=== PATIENT | female | born 1990 | race American Indian/Alaskan Native ===

== ENCOUNTER 2017-07-19 15:44 | Emergency (ER) | payer SELFPAY ==
[2017-07-19 15:58] VITALS: BP 128/74
[2017-07-19] MEDS ORDERED: MOTRIN PO ONE (18:11)
[2017-07-19] MEDS ORDERED: MOTRIN ONE (18:13)
[2017-07-19] MEDS ORDERED: XYLOCAINE 2% INFILTRATI ONE (18:25)
--- NOTE | 2017-07-19 19:24 | Emergency Department Report ---
- General Chief complaint: Skin/Abscess/Foreign Body Stated complaint: CYST LEFT ARMPIT Time Seen by Provider: 07/19/17 17:26 Source: patient Mode of arrival: Ambulatory Limitations: No Limitations - History of Present Illness Initial comments: This is a 27-year-old female nontoxic, well nourished in appearance, no acute signs of distress presents to the ED with c/o of boil to the left abscess to the axilla region x1 week. Patient stated this developed last week smaller has gotten bigger. Patient denies any trauma to the region. Patient denies any pus, drainage, fever, chills, headache, nausea, vomiting, chest pain, shortness of breathe, blurry vision, stiff neck. Patient denies any allergies or significant PMH. MD complaint: abscess/boil -: week(s) (1) Tetanus Up to Date: yes (2014) Location: LUE Severity: mild Severity scale (0 -10): 8 Quality: aching Consistency: constant Improves with: none Worsens with: none Context: none Associated symptoms: denies other symptoms Treatments Prior to Arrival: none - Related Data Home Medications Medication Instructions Recorded Confirmed Last Taken traMADol [Ultram] 50 mg PO BID PRN 06/04/16 06/04/16 Unknown Previous Rx's Medication Instructions Recorded Last Taken Type Sulfamethoxazole/Trimethoprim 1 each PO BID #14 tablet 07/19/17 Unknown Rx [Bactrim DS TAB] traMADol [Ultram] 50 mg PO Q6HR PRN #12 tablet 07/19/17 Unknown Rx Allergies Allergy/AdvReac Type Severity Reaction Status Date / Time No Known Allergies Allergy Unverified 06/04/16 10:11 Abscess Boil HPI - HPI Chief Complaint: Skin/Abscess/Foreign Body Stated Complaint: CYST LEFT ARMPIT Time Seen by Provider: 07/19/17 17:26 Home Medications: Home Medications Medication Instructions Recorded Confirmed Last Taken traMADol [Ultram] 50 mg PO BID PRN 06/04/16 06/04/16 Unknown Previous Rx's Medication Instructions Recorded Last Taken Type Sulfamethoxazole/Trimethoprim 1 each PO BID #14 tablet 07/19/17 Unknown Rx [Bactrim DS TAB] traMADol [Ultram] 50 mg PO Q6HR PRN #12 tablet 07/19/17 Unknown Rx Allergies/Adverse Reactions: Allergies Allergy/AdvReac Type Severity Reaction Status Date / Time No Known Allergies Allergy Unverified 06/04/16 10:11 ED Review of Systems ROS: Stated complaint: CYST LEFT ARMPIT Other details as noted in HPI Constitutional: denies: chills, fever Eyes: denies: eye pain, eye discharge, vision change ENT: denies: ear pain, throat pain Respiratory: denies: cough, shortness of breath, wheezing Cardiovascular: denies: chest pain, palpitations Endocrine: no symptoms reported Gastrointestinal: denies: abdominal pain, nausea, diarrhea Genitourinary: denies: urgency, dysuria, discharge Musculoskeletal: denies: back pain, joint swelling, arthralgia Skin: denies: rash, lesions Neurological: denies: headache, weakness, paresthesias Psychiatric: denies: anxiety, depression Hematological/Lymphatic: denies: easy bleeding, easy bruising ED Past Medical Hx - Past Medical History Previous Medical History?: Yes Additional medical history: OBESITY, heart murmur, muscle spasms in back, sciatic nerve pain - Surgical History Past Surgical History?: Yes Additional Surgical History: - Social History Smoking Status: Current Every Day Smoker Substance Use Type: Alcohol - Medications Home Medications: Home Medications Medication Instructions Recorded Confirmed Last Taken Type traMADol [Ultram] 50 mg PO BID PRN 06/04/16 06/04/16 Unknown History Sulfamethoxazole/Trimethoprim 1 each PO BID #14 tablet 07/19/17 Unknown Rx [Bactrim DS TAB] traMADol [Ultram] 50 mg PO Q6HR PRN #12 tablet 07/19/17 Unknown Rx ED Physical Exam - General Limitations: No Limitations General appearance: alert, in no apparent distress - Head Head exam: Present: atraumatic, normocephalic - Eye Eye exam: Present: normal appearance - ENT ENT exam: Present: mucous membranes moist - Neck Neck exam: Present: normal inspection - Respiratory Respiratory exam: Present: normal lung sounds bilaterally. Absent: respiratory distress, wheezes, rales, rhonchi, stridor, chest wall tenderness, accessory muscle use, decreased breath sounds, prolonged expiratory - Cardiovascular Cardiovascular Exam: Present: regular rate, normal rhythm, normal heart sounds. Absent: irregular rhythm, systolic murmur, diastolic murmur, rubs, gallop - GI/Abdominal GI/Abdominal exam: Present: soft, normal bowel sounds - Extremities Exam Extremities exam: Present: normal inspection, full ROM, normal capillary refill. Absent: tenderness, pedal edema, joint swelling, calf tenderness - Back Exam Back exam: Present: normal inspection - Neurological Exam Neurological exam: Present: alert, oriented X3 - Psychiatric Psychiatric exam: Present: normal affect, normal mood - Skin Skin exam: Present: warm, dry, intact, normal color. Absent: rash - Other Other exam information: 2 cm swelling with fluctuance and induration present to the left axilla region. No pus or drainage noted. Tender to touch. ED Course Vital Signs 07/19/17 07/19/17 15:52 18:13 Temperature 99.9 F H Pulse Rate 124 H Respiratory 16 18 Rate Blood Pressure 128/74 O2 Sat by Pulse 98 Oximetry - Reevaluation(s) Reevaluation #1: 07/19/17 19:28 Patient is speaking in full sentences with no signs of distress noted. - I & D Left Chest Type of Procedure: Complex Site: left axilla region Blade Size: 11 I & D Procedure: betadine prep, sterile drapes applied, sterile dressing applied , gauze wick placed Progress: Under sterile field, I used Betadine to cleanse the area. I then used 2% lidocaine plain with 25-gauge 5/8 needle to inject area for anesthetic purposes. Total volume injected 3 mL. I then used an 11 blade to make a 1 cm incision. About 2 mL's of purulent drainage has been noted. I then used a hemostat to break the abscess formation. I then used sterile 0.9% normal saline flush to flush the wound with total volume of 40 mL used. I then put a 1 /4 iodoform packing to the incision. A sterile 4 x 4 with tape has been applied as dressing. Bleeding is under control. Patient tolerated the procedure well with no signs of distress noted. ED Medical Decision Making - Medical Decision Making This is a 27-year-old female that presents with abscess. Patient is stable and was examined by me. I/D has been performed and patient tolerated well with no signs of distress. Patient was instructed to return in 2 days for incision and drainage. Patient received Bactrim at discharge. Patient was instructed Follow -up with a primary care doctor in 3-5 days or if symptoms worsen and continue return to emergency room as soon as possible. At time time of discharge, the patient does not seem toxic or ill in appearance. No acute signs of distress noted. Patient agrees to discharge treatment plan of care. No further questions noted by the patient. Critical care attestation.: If time is entered above; I have spent that time in minutes in the direct care of this critically ill patient, excluding procedure time. ED Disposition Clinical Impression: Abscess Disposition: DC-01 TO HOME OR SELFCARE Is pt being admited?: No Does the pt Need Aspirin: No Condition: Stable Instructions: Abscess (ED), Abscess Incision and Drainage (ED), Tramadol (By mouth), Sulfamethoxazole/Trimethoprim (By mouth) Additional Instructions: Follow-up with a primary care doctor in 3-5 days or if symptoms worsen and continue return to emergency room as soon as possible. Return in 2 days for reassessment of the abscess and packing removal. Do not operate any machinery while taking Ultram due to drowsiness Prescriptions: Sulfamethoxazole/Trimethoprim [Bactrim DS TAB] 1 each PO BID #14 tablet traMADol [Ultram] 50 mg PO Q6HR PRN #12 tablet PRN Reason: Pain Referrals: PRIMARY CARE, [Primary Care Provider] - 3-5 Days NIKKI MURRIETA MD [Staff Physician] - 3-5 Days [facility] [Outside] - 3-5 Days [facility] [Outside] - 3-5 Days Forms: Work/School Release Form(ED)
== END 2017-07-19 19:55 | disposition home or self-care (01) ==
LOC: ED 15:44
DX: L02.412 Cutaneous abscess of left axilla (principal); F17.200 Nicotine dependence, unspecified, uncomplicated
CPT/HCPCS: 99282